=== PATIENT | male | born 1965 | race Caucasian/White ===

== ENCOUNTER → 2020-08-13 08:08 | Outpatient (BNVA) | payer OTHER, SELFPAY | PROVIDERS: PCP Nurse Practitioner Family; Visit Provider Specialist | DX: G92 Toxic encephalopathy (principal); R56.9 Unspecified convulsions; R41.3 Other amnesia; R44.1 Visual hallucinations | CPT/HCPCS: 96116; 99205 ==

== ENCOUNTER 2020-08-13 10:05 | Outpatient (CLI) | payer OTHER, SELFPAY ==
[2020-08-13 10:41] LABS: Basophils # 0.1 10^3/uL (0.0-0.1); Basophils % 0.7 %; Eosinophils # 0.1 10^3/uL (0.0-0.8); Eosinophils % 1.6 %; Hematocrit 43.2 % (42.0-52.0); Hemoglobin 14.7 g/dL (11.7-16.6); Lymphocytes # 1.9 10^3/uL (0.8-4.8); Lymphocytes % 26.6 %; Mean Corpuscular Hemoglobin 31.9 pg (28.0-34.0); Mean Corpuscular Volume 93.7 fL (80-94); Mean Platelet Volume 10.9 fL (7.4-10.4); Monocytes # 0.5 10^3/uL (0.2-0.9); Monocytes % 6.5 %; Neutrophils # 4.56 10^3/uL (1.8-7.7); Neutrophils % 64.3 %; Nucleated Red Blood Cells % 0 %; Platelet Count 184 10^3/cmm (130-400); Red Blood Count 4.61 10^6/uL (4.1-5.3); Red Cell Distribution Width 11.8 % (12.1-15.1); White Blood Count 7.1 10^3/uL (4.0-10.0)
[2020-08-13 11:18] LABS: Alanine Aminotransferase 41 U/L (0-41); Albumin Level 4.3 g/dL (3.5-5.2); Alkaline Phosphatase 77 IU/L (40-130); Anion Gap 12.8 (5-19); Aspartate Amino Transferase 24 U/L (0-40); Blood Urea Nitrogen 18 mg/dL (6-20); C Reactive Protein 2.2 mg/L (0.0-4.9); Calcium 9.8 mg/dL (8.5-10.5); Carbon Dioxide 27 mmol/L (22-29); Chloride 103 mmol/L (98-107); Glomerular Filtration Rate 87.9 mL/min (90-130); Glucose 104 mg/dL (65-115); Osmolality Calculated 290 mOsm/kg (285-295); Potassium 3.8 mmol/L (3.5-5.1); Sodium 139 mmol/L (136-145); Thyroid Stimulating Hormone 0.79 uIU/mL (0.27-4.20); Total Bilirubin 0.5 mg/dL (0.15-1.2); Total Protein 8.3 g/dL (6.6-8.7); Vitamin B12 1185 pg/mL (232-1245)
[2020-08-13 12:38] LABS: Erythrocyte Sedimentation Rate 40 mm/hr (0-10)
[2020-08-13 13:30] LABS: Free T4 Free Thyroxine 1.42 ng/dL (0.82-1.77)
== END 2020-08-13 10:06 | disposition home or self-care (01) ==
LOC: LAB 10:08
PROVIDERS: PCP Nurse Practitioner Family; Visit Provider Specialist
DX: G92 Toxic encephalopathy (principal)
CPT/HCPCS: 80053; 82607; 84439; 84443; 85025; 85651; 86140

== ENCOUNTER → 2020-08-15 12:55 | Outpatient (BNVA) | payer OTHER, SELFPAY | PROVIDERS: PCP Nurse Practitioner Family; Visit Provider Specialist | DX: G40.909 Epilepsy, unspecified, not intractable, without status epilepticus (principal); G92 Toxic encephalopathy; R44.3 Hallucinations, unspecified | CPT/HCPCS: 95816 ==

== ENCOUNTER 2020-08-27 13:34 | Outpatient (CLI) | payer OTHER, SELFPAY ==
--- NOTE | 2020-08-27 13:46 | MR_ITS ---
WS: [id number] MRI HEAD WITH CONTRAST TECHNIQUE: Sagittal T1, T2 axial, T2 axial FLAIR, axial susceptibility weighted imaging, axial diffus ion weighted images, and coronal T2 images were obtained. Pre and post-T1 axial and post T1 coronal i mages. ADC and FSPGR images. CLINICAL INFORMATION: G92 - Toxic encephalopathy COMPARISON: None. FINDINGS: Small amount of cortical and subcortical restricted diffusion involving the parasagittal left tempora l occipital junction consistent with acute ischemia. Small amount of edema in this location. No signi ficant mass effect or midline shift. No abnormal gadolinium enhancement. No other foci of acute ische deysi. Several punctate foci of chronic hemosiderin with encephalomalacia and gliosis in the left posterior temporal lobe just anterior to the area of acute ischemia likely due to chronic infarct. Small amount of cystic encephalomalacia in this area with laminar necrosis. Normal posterior fossa. Normal vascular flow voids at the skull base. No extra-axial fluid collection s. No hydrocephalus. Minimal small vessel changes. Mild parenchymal volume loss. Normal dural venous sinuses. MR/MR head wo/w con [id number] IMPRESSION: 1. Patchy restricted diffusion involving the left parasagittal temporal occipi sinai junction consistent with acute ischemia. Mild associated edema. No signific ant mass effect or midline shift. 2. Area of ischemia measures approximately 2.1 x 1.8 cm. 3. Several small foci of hemosiderin with cystic encephalomalacia in the left posterior temporal lobe extending to the occipital horn with a small amount of laminar necrosis consistent with chronic infarct with cystic encephalomalacia. 4. Mild small vessel changes. Mild parenchymal volume loss.
--- NOTE | 2020-08-27 13:46 | MR_ITS ---
WS: [id number] MRA HEAD TECHNIQUE: Axial 3-D TOF images obtained with axial images and axial, sagittal, and coronal 2-D refor matted images. CLINICAL INFORMATION: G92 - Toxic encephalopathy COMPARISON: None. FINDINGS: Distal vertebral arteries are patent. Basilar artery is patent. Normal vascularity to the proximal PC A territory bilaterally. Slightly decreased vascularity in the area of acute ischemia at the left tem poral occipital junction in the distal branches. Both ICAs are patent at the skull base. Normal vascularity to the [place] and MCA territories bilaterally . No evidence of high-grade proximal stenosis or aneurysm. Chronic infarct with encephalomalacia and gliosis in the left posterior temporal lobe described on th e concurrent MRI head. MR/MR angio head wo con [id number] IMPRESSION: 1. Slightly decreased terminal vascularity to the distal left [employer] territory in the area of acute ischemia described on the concurrent MRI head. 2. Otherwise unremarkable intracranial MRA. Notified Tina Brand MD at 08/27/2020 3:24 PM.
== END 2020-08-27 13:35 | disposition home or self-care (01) ==
LOC: RADWPI 13:39
PROVIDERS: PCP Nurse Practitioner Family; Visit Provider Specialist
DX: G92 Toxic encephalopathy (principal); I67.82 Cerebral ischemia
CPT/HCPCS: 70544; 70553; A9577

== ENCOUNTER → 2020-09-19 14:15 | Outpatient (BNVA) | payer OTHER, SELFPAY | PROVIDERS: PCP Nurse Practitioner Family; Visit Provider Specialist | DX: I66.29 Occlusion and stenosis of unspecified posterior cerebral artery (principal); G92 Toxic encephalopathy; Z86.73 Personal history of transient ischemic attack (TIA), and cerebral infarction without residual deficits; Z87.891 Personal history of nicotine dependence | CPT/HCPCS: 99215 ==

== ENCOUNTER 2020-09-19 16:44 | Outpatient (CLI) | payer OTHER, SELFPAY ==
[2020-09-19 20:40] LABS: Erythrocyte Sedimentation Rate 20 mm/hr (0-10)
[2020-09-23 13:08] LABS: COMPLEMENT, TOTAL (CH50) 42 U/mL (31-60)
[2020-09-23 13:39] LABS: CENTROMERE B ANTIBODY <1.0 NEG AI (<1.0 NEG); JO-1 ANTIBODY <1.0 NEG AI (<1.0 NEG); RNP ANTIBODY <1.0 NEG AI (<1.0 NEG); SCL-70 ANTIBODY <1.0 NEG AI (<1.0 NEG); SJOGREN'S ANTIBODY (SS-A) <1.0 NEG AI (<1.0 NEG); SM ANTIBODY <1.0 NEG AI (<1.0 NEG); SS-B <1.0 NEG AI (<1.0 NEG)
[2020-09-23 14:27] LABS: ANA SCREEN, IFA NEGATIVE (NEGATIVE)
[2020-09-23 15:28] LABS: COMPLEMENT COMPONENT C3C 135 mg/dL (82-185); COMPLEMENT COMPONENT C4C 10 mg/dL (15-53)
[2020-09-24 14:43] LABS: THYROID PEROXIDASE ANTIBODIES 1 IU/mL (<9)
[2020-09-26 23:18] LABS: DNA AB (DS) CRITHIDIA,IFA NEGATIVE (NEGATIVE)
== END 2020-09-19 16:45 | disposition home or self-care (01) ==
PROVIDERS: PCP Nurse Practitioner Family; Visit Provider Specialist
DX: I66.29 Occlusion and stenosis of unspecified posterior cerebral artery (principal)
CPT/HCPCS: 36415; 85651; 86140; 86160; 86162; 86235; 86255; 86376

== ENCOUNTER 2020-11-04 06:49 | Outpatient (CLI) | payer OTHER, SELFPAY ==
--- NOTE | 2020-11-04 | USCV_ITS ---
Coweta Franco Age: 55 Gender: M : 1965 Exam Date: 11/04/2020 07:18 Ordering Phys: Debbi Alejandre MD ([email or web address]) Technologist: Vincent Burnette Exam Location: [facility] [place] Indication: CHF BP: 125 / 74 HR: 57 Rhythm: Sinus Technical Quality: Adequate MEASUREMENTS (Male / Female) Normal Values 2D ECHO LV Diastolic Diameter PLAX 5.1 cm 4.2 - 5.9 / 3.9 - 5.3 cm LV Systolic Diameter PLAX 3.8 cm IVS Diastolic Thickness 1.1 cm 0.6 - 1.0 / 0.6 - 0.9 cm IVS Systolic Thickness 1.5 cm LVPW Diastolic Thickness 1.2 cm 0.6 - 1.0 / 0.6 - 0.9 cm LVPW Systolic Thickness 1.5 cm LVOT Diameter 2.1 cm LV Ejection Fraction 2D Teich 51.1 % LV Ejection Fraction MOD 2C 63.1 % LV Ejection Fraction 2C AL 63.0 % LA Diameter 4.0 cm LA Width 4.0 cm LA Height 4.8 cm RA Width 4.1 cm RA Height 4.8 cm M-MODE LV Diastolic Diameter MM 5.2 cm 4.2 - 5.9 / 3.9 - 5.3 cm LV Systolic Diameter MM 3.5 cm LV Ejection Fraction MM Teich 61.1 % IVS Diastolic Thickness MM 1.3 cm 0.6 - 1.0 / 0.6 - 0.9 cm IVS Systolic Thickness MM 1.6 cm LVPW Diastolic Thickness MM 1.2 cm 0.6 - 1.0 / 0.6 - 0.9 cm LVPW Systolic Thickness MM 1.6 cm RV Diastolic Diameter MM 2.2 cm Aortic Annulus Diameter 3.4 cm LA Ao Ratio MM 1.1 MV E Point Septal Separation 0.7 cm DOPPLER AV Peak Velocity 127.0 cm/s LVOT Peak Velocity 93.0 cm/s AV Area Cont Eq vti 2.3 cm squared AV Area Cont Eq pk 2.4 cm squared MV Area PHT 5.0 cm squared Mitral E to A Ratio 0.9 MV E' Velocity 30.0 cm/s Mitral E to MV E' Ratio 6.1 Mitral E to LV E' Lateral Ratio 6.3 Mitral E to LV E' Septal Ratio 6.0 TR Peak Velocity 214.7 cm/s TR Peak Gradient 18.4 mmHg TV Peak E Velocity 77.0 cm/s Right Atrial Pressure 3.0 mmHg Pulmonary Artery Systolic Pressu 21.4 mmHg FINDINGS Left Ventricle Mildly increased left ventricular cavity size. Moderately decreased left ventricular systolic function. Left ventricular ejection fraction is estimated at 40 %. Global left ventricular hypokinesis. Grade I/IV diastolic dysfunction (abnormal relaxation filling pattern), normal to mildly elevated filling pressures. Right Ventricle The right ventricle is normal in size and function. Right Atrium The right atrium is normal in size. Left Atrium The left atrium is normal in size. Mitral Valve Structurally normal mitral valve without significant stenosis or prolapse. There is no mitral regurgitation. Aortic Valve Structurally normal aortic valve without significant sclerosis or stenosis. There is no aortic regurgitation. Tricuspid Valve Structurally normal tricuspid valve without significant stenosis or regurgitation. Pulmonary artery systolic pressure is normal. Pulmonic Valve Structurally normal pulmonic valve without significant stenosis. There is no pulmonic regurgitation. Pericardium Normal pericardium without effusion. Aorta Normal ascending aorta dimension. CONCLUSIONS 1-Mildly increased left ventricular cavity size. Moderately decreased left ventricular systolic function. Left ventricular ejection fraction is estimated at 40 %. Global left ventricular hypokinesis. Grade I/IV diastolic dysfunction (abnormal relaxation filling pattern), normal to mildly elevated filling pressures. 2-There is no pericardial effusion. 3-No significant valve abnormalities. 4-Pulmonary artery systolic pressure is within normal limits. 5-Right atrial pressure is around 5 mm of mercury. 6-There are no prior echocardiogram studies to compare. Debbi Alejandre MD (Electronically Signed) Final Date: 16 Nov 2020 18:05 S
== END 2020-11-04 06:50 | disposition home or self-care (01) ==
LOC: RAD 06:50
PROVIDERS: PCP Nurse Practitioner Family; Visit Provider Internal Medicine Cardiovascular Disease
DX: I66.29 Occlusion and stenosis of unspecified posterior cerebral artery (principal); I50.9 Heart failure, unspecified
CPT/HCPCS: C8929

== ENCOUNTER → 2024-04-08 10:47 | Outpatient (BNVA) | payer OTHER, SELFPAY | PROVIDERS: PCP Nurse Practitioner Family; Visit Provider Emergency Medicine | DX: R30.0 Dysuria (principal); R05.9 Cough, unspecified; R39.9 Unspecified symptoms and signs involving the genitourinary system | CPT/HCPCS: 81000; 87086; 87400 ==